=== PATIENT | male | born 1935 | race African-American/Black ===

== ENCOUNTER 2016-12-16 09:39 | Day surgery (SDC) | payer MEDICARE, BC ==
[~2016-12-16] VITALS: Ht 188 cm; Wt 84.4 kg
[~2016-12-16 09:39] MED LIST: ALLOPURINOL100 MG PO; ALLOPURINOL300 MG PO; AMLODIPINE BESY10 MG PO; AMLODIPINE BESYL5 MG PO; CIALIS5 MG PO; COLCRYS0.6 MG PO; EFFIENT10 MG PO; ENALAPRIL MALEA20 MG PO; HYDROCODON-ACE1 EA11 PO; LABETALOL HCL300 MG PO; MIRALAX17 GM PO; MONTELUKAST SOD10 MG PO; NITROSTAT0.4 MG SL; OXYCODONE HCL5 MG PO; PATADAY2.5 ML OPTH; PERCOCET 5-3251 EACH PO; PROTONIX40 MG PO; PROVENTIL HFA6.7 GM INH; SIMVASTATIN20 MG PO; SINGULAIR10 MG PO; SULFAMETHOXAZO1 EAC1 PO; TORSEMIDE100 MG PO; VERAMYST10 GM; VERAMYST10 GM NAS; XARELTO10 MG PO
--- NOTE | 2016-12-16 12:06 | NUR ---
12/16/16 1206 Faisal Underwood INITALLY UNRESPONSIVE TO TAP AND VOICE. PT DOES NOW RESPOND AT 1206. DENIES NAUSEA OR PAIN. REORIENTED TO TIME AND SITUATION. FALLS ASLEEP EASILY.
--- NOTE | 2016-12-16 20:41 | OR ---
[facility] [address], [place] [address] Signed DATE OF OPERATION: 12/16/2016 SURGEON: Shady Hsu MD PREOPERATIVE DIAGNOSIS: Surveillance colon screening. POSTOPERATIVE DIAGNOSES: 1. Small MULTIPLE nodules of the right colon. 2. Small hyperplastic polyps of rectum. PROCEDURE: Total colonoscopy to the cecum with cold morcellation polypectomy and biopsies x2. ANESTHESIA: Intravenous sedation with fentanyl 100 mcg, Versed 4 mg. INDICATION: This is a 81-year-old black man, who is a patient of Dr. Dario Baker and here for colon evaluation. He was planned to have colonoscopy for surveillance in June 2015, but had cardiac problems, ultimately undergoing evaluation for myocardial infarction. He is no longer on Plavix, which he was placed on after stent placement. He remains asymptomatic in regard to colon and is here to undergo colonoscopy. He understands the risks of bleeding, infection, and perforation. He has no family history of colon cancer. He understands risks of bleeding, infection, and perforation, and wished to proceed. FINDINGS: The prep was good. Complete colonoscopy was undertaken to the cecum. There were fine mucosal nodular changes of the right colon and portions of the transverse colon. Additionally, he had some hyperplastic-appearing polyps of the rectum. There was no sign of cancer, colitis, or diverticular disease or other issues of concern. DESCRIPTION OF PROCEDURE: The patient was brought to the endoscopy suite and placed in lateral decubitus position given intravenous sedation to the point of slurred speech and nystagmus. Digital rectal examination was normal. An Olympus video colonoscope was passed in the rectum and manipulated throughout the colon, ultimately intubating the cecum itself. Irrigation was undertaken as needed. Abdominal wall palpation confirmed the position of the scope to be in the cecum. The Electronically Signed By: SHADY HSU MD 12/16/16 2041 PATIENT NAME: ADITHYA FUNG OPERATIVE REPORT DATE OF : 39 PHYSICIAN: SHADY HSU MD REPORT #: [id number] REPORT IS CONFIDENTIAL AND NOT TO BE RELEASED WITHOUT AUTHORIZATION [facility] [address], [place] [address] Signed scope was withdrawn from that point and fine mucosal nodular changes were noted in the [id number] ascending colon. These were not particularly polyps in appearance, but simply fine nodular changes. Biopsies were obtained. The scope was further withdrawn and ultimately in rectum were some hyperplastic-appearing polyps. These were excised with cold morcellation technique. Retroflexed view was reasonably normal. The scope was removed, and the patient was taken to recovery room in good condition. CONCLUDING DIAGNOSES: Fine nodular changes of right colon and transverse colon as well as hyperplastic polyps of rectum. PLAN: We will review his pathology report. In general terms, the findings were innocuous. If adenomatous changes were noted, then surveillance colonoscopy would be needed. If not, expectant management based on his advanced age. MD BRUCE Agustin/DELILAH /[id number] cc: Dario Baker MD Electronically Signed By: SHADY HSU MD 12/16/16 2041 PATIENT NAME: ADITHYA FUNG OPERATIVE REPORT DATE OF : 39 PHYSICIAN: SHADY HSU MD REPORT #: [id number] REPORT IS CONFIDENTIAL AND NOT TO BE RELEASED WITHOUT AUTHORIZATION
[2017-01-29] MEDS ORDERED: EXCEDRIN EXTRA1 EAC1 PO (15:21)
[2017-01-29] MEDS ORDERED: VENTOLIN HFA18 GM INH (15:23)
== END 2016-12-16 12:55 | disposition home or self-care (01) ==
LOC: OPS 09:39 → DS 09:45 → OPS 12:55
PROVIDERS: Surgery
PROC: 0DBP8ZX Excision of Rectum, Via Natural or Artificial Opening Endoscopic, Diagnostic (ICD-10-PCS; 2016-12-16)
PROC: 0DBK8ZX Excision of Ascending Colon, Via Natural or Artificial Opening Endoscopic, Diagnostic (ICD-10-PCS; principal; 2016-12-16 09:45)
DX: Z12.11 Encounter for screening for malignant neoplasm of colon (principal); D12.2 Benign neoplasm of ascending colon; K62.1 Rectal polyp; I25.2 Old myocardial infarction; E78.5 Hyperlipidemia, unspecified; I10 Essential (primary) hypertension; J45.909 Unspecified asthma, uncomplicated; Z87.891 Personal history of nicotine dependence; Z90.89 Acquired absence of other organs; Z96.641 Presence of right artificial hip joint; Z98.890 Other specified postprocedural states; M19.90 Unspecified osteoarthritis, unspecified site; Z79.899 Other long term (current) drug therapy
CPT/HCPCS: 88305; 99152; 99153; J0694; J2250; J3010; J7120

== ENCOUNTER 2020-07-18 06:32 | Emergency (ER) | payer MEDICARE, BC ==
[~2020-07-18] VITALS: Ht 188 cm; Wt 84.4 kg
[~2020-07-18 06:32] MED LIST changes: +EXCEDRIN EXTRA1 EAC1 PO; +VENTOLIN HFA18 GM INH
--- OUTSIDE RECORDS SUMMARY | 2020-07-18 06:34 | XMS ---
PreManage Notification: ADITHYA FUNG Security Installation Technician Events No recent Security Events currently on file [facility] MET [facility] There are no care providers on record at this time. Alva has no Care Guidelines for this patient. Cecilia VISIT COUNT (12 MO.) 1 AFSHIN Salazar TOTAL 1 NOTE: Visits indicate total known visits. ED/UCC VISIT TRACKING (12 MO.) 07/18/2020 06:32 AFSHIN Whitaker OR TYPE: Emergency COMPLAINT: - LT KNEE PAIN INPATIENT VISIT TRACKING (12 MO.) 06/02/2020 06:19 Venkat TRUONG TYPE: Surgical Services [email or web address]
[2020-07-18] MEDS ORDERED: PRIMIDONE50 MG PO (06:51)
[2020-07-18] MEDS ORDERED: TRAMADOL HCL50 MG PO (06:51)
[2020-07-18] MEDS ORDERED: FINASTERIDE5 MG PO (06:53)
[2020-07-18] MEDS ORDERED: PREDNISONE20 MG PO (12:20)
[2020-07-18] MEDS ORDERED: ACETAMINOPHEN-1 EAC1 PO (12:20)
== END 2020-07-18 12:28 | disposition home or self-care (01) ==
LOC: ED 06:32
DX: M25.562 Pain in left knee (principal); K21.9 Gastro-esophageal reflux disease without esophagitis; I10 Essential (primary) hypertension; E78.00 Pure hypercholesterolemia, unspecified; M10.9 Gout, unspecified; Z79.899 Other long term (current) drug therapy
CPT/HCPCS: 73560; 73700; 99284-25

== ENCOUNTER 2021-03-05 09:02 | Inpatient (IN) | payer MEDICARE, BC ==
[~2021-03-05] VITALS: Ht 188 cm; Wt 73.5 kg
[~2021-03-05 09:02] MED LIST changes: +ACETAMINOPHEN-1 EAC1 PO; +FINASTERIDE5 MG PO; +PREDNISONE20 MG PO; +PRIMIDONE50 MG PO; +TRAMADOL HCL50 MG PO
--- OUTSIDE RECORDS SUMMARY | 2021-03-05 09:04 | XMS ---
PreManage Notification: ADITHYA FUNG Security Robotype Operator Events No recent Security Events currently on file CRITERIA MET - [facility] CARE PROVIDERS [facility] 07/20/2020-Current PHONE: [phone] Alva has no Care Guidelines for this patient. EStevan VISIT COUNT (12 MO.) 2 AFSHIN Salazar TOTAL 2 NOTE: Visits indicate total known visits. ED/UCC VISIT TRACKING (12 MO.) 03/05/2021 09:03 AFSHIN Whitaker OR TYPE: Emergency COMPLAINT: - FLU SYMMPTOMS 07/18/2020 06:32 AFSHIN Whitaker OR TYPE: Emergency COMPLAINT: - LT KNEE PAIN DIAGNOSES: - Gout, unspecified - Pain in left knee - Other termite control technician (current) drug therapy - Gastro-esophageal reflux disease without esophagitis - Essential (primary) hypertension - Pure hypercholesterolemia, unspecified INPATIENT VISIT TRACKING (12 MO.) 06/02/2020 06:19 Venkat Cavalier Madhu TRUONG TYPE: Surgical Services [email or web address]
[2021-03-05] MEDS ORDERED: ATORVASTATIN CA20 MG PO (09:36)
[2021-03-05] MEDS ORDERED: LABETALOL HCL300 MG PO (09:36)
[2021-03-05] MEDS ORDERED: ONDANSETRON ODT8 MG PO (10:38)
[2021-03-05] MEDS ORDERED: medrol dose pack (11:28)
[2021-03-05] MEDS ORDERED: AZITHROMYCIN500 MG PO (11:28)
--- NOTE | 2021-03-05 13:05 | NUR ---
Report received from ED RN BECKY Le on 1L via RI.
[2021-03-05] MEDS ORDERED: MONTELUKAST SOD10 MG PO (13:09)
[2021-03-05] MEDS ORDERED: AMLODIPINE BESY10 MG PO (13:16)
--- NOTE | 2021-03-05 13:30 | NUR ---
This RN brought pt from ED to [facility] via stretcher, pt able to ind transfer from stretcher to bed, VSS on 1L via NC, pt denies any pain or SOB only c/o WASSERMAN and cough. Admission and assesment complete, IV Remdesivir hung and infusing per provider order. Pt resting safely in bed w/ call light in reach, no further needs at this time
--- NOTE | 2021-03-05 16:10 | NUR ---
Pt resting safely in bed w/ call light in reach, pt finally has an appetite, tuna sandwhich and apple juice given per request, pt denies any further needs at this time
--- NOTE | 2021-03-05 18:00 | NUR ---
PT RESTING IN BED SAFELY W/ CALL LIGHT IN REACH, PT C/O PERSISTENT COUGH AND CHILLS, PT OBSERVED TO BE PRESPIRING, PT AFEBRILE, VSS ON 1L VIA NC, PT GIVEN PRN COUGH MEDICATIONS PER REQUEST/ORDER. PT DENIES ANY FURTHER NEEDS AT THIS TIME.
--- NOTE | 2021-03-05 19:15 | NUR ---
SHIFT REPORT RECEIVED FROM DAYSHIFT SETH ROSS. pt AWAKE AND RESTING IN BED, ON 1LNC. RR EVEN AND UNLABORED. pt INTERACTIVE WITH SUPERINTENDENT BUILDING AND DENIES NEEDS OR CONCERNS. CALL LIGHT IN REACH.
--- NOTE | 2021-03-05 21:30 | NUR ---
pt AWAKE AND RESTING IN BED AND WATCHING TV. 1LNC REMAINS IN PLACE, RR EVEN AND UNALBORED. NO NEEDS VERBALIZED. CALL LIGHT IN REACH.
--- NOTE | 2021-03-05 22:15 | NUR ---
ASSESSMENT COMPLETE, SCHEDULED MEDS GIVEN (SEE EMAR). pt DENEIS PAIN AND NAUSEA. VSS, 1LNC REMAINS IN PLACE. RR EVEN AND UNLABORED, NO DISTRESS NOTED. DRY COUGH NOTED, pt DECLINES PRN COUGH MEDICATION. pt INDEPENDENT IN ROOM AND CAN TURN SELF IN BED INDEPENDENTLY. pt SWEATY TO FACE, DRY GOWN GIVEN. pt AFEBRILE. FRESH WATER PROVIDED. NO FURTHER NEEDS, CALL LIGHT IN REACH.
--- NOTE | 2021-03-06 00:05 | NUR ---
pt AWAKE AND WATCHING TV IN BED, NO NEEDS VERBALIZED. pt PROVIDED THUMBS UP SIGNAL FROM DOOR. WILL MONITOR, CALL LIGHT IN REACH.
--- NOTE | 2021-03-06 01:37 | NUR ---
PRN COUGH MEDICATION GIVEN, SEE EMAR. NO NEW CHANGES WITH ASSESSMENT. CPOX IN PLACE, pt ACCIDENTLY PULLED OUT O2 FROM WALL. ON RA, pt IN ROOM AND AMBULATING, SPO2 MID 80'S THEN BEGAN TO CLIMB TO UPPER 80'S. 1LNC REMAINS BACK IN PLACE. pt SALLY PAIN, SOB, PALPITATIONS, OR CHEST PAIN. REPORTS SWEATING FROM EARLIER IN SHIFT IS BETTER. SBP RECETLY TAKEN AND IN 90'S, RECHECKED BY THIS RN AND WNL. NO FURTHER NEEDS, CALL LIGHT IN REACH. pt PROVIDE WRITTEN EDUCATION ON PRONING AND THIS RN DISCUSSED EDUCATION IN LENGTH WITH pt, pt REPORTS DIFFICULTY SLEEPING IN PRONING POSITION BUT AGREES TO TRY. NO FURTHER NEEDS, CALL LIGHT IN REACH.
--- NOTE | 2021-03-06 06:36 | NUR ---
EARLIER IN SHIFT, pt WAS NOT ABLE TO VERBALIZE WHY HE WAS TAKING PO ACYCLOVIR AND CLAIMS HE DOESN'T KNOW WHAT THAT MED DOES. EDUCATION PROVIDED. MD BRUSH AWARE THAT MED IS STILL ACTIVE ON EMAR, BUT pt CLAIMS HE DOESN'T TAKE. MD BRUSH TO FURTHER EVAL. AWARE THAT SCHEDULED MED WAS GIVEN AT START OF SHIFT WITH OTHER EVENING MEDS.
--- NOTE | 2021-03-06 07:30 | NUR ---
Shift report received from SETH Marques, pt resting in bed safely w/ call light in reach. Pt on Tele #9 w/ CPOX, sats 99% on 1L via NC, denies any SOB or needs at this time.
[2021-03-06] MEDS ORDERED: COLCRYS0.6 MG PO (09:00)
[2021-03-06] MEDS ORDERED: MOMETASONE FURO15 G1 TOP (09:04)
--- NOTE | 2021-03-06 10:00 | NUR ---
Pt resting in bed w/ call light in reach. Pt sating 100% on 1L via NC, O2 removed, pt sats remains 94-97% on RA, will continue to monitor via Tele/CPOX. Morning assesment complete and scheduled meds given per provider order, pt denies any further needs at this time.
--- NOTE | 2021-03-06 12:00 | NUR ---
Pt up walking in room, sats remained 90-95% on RA, pt denied SOB. Provider notified, verbalized pt will be dischared home, awaiting discharge paperwork, pt updated.
[2021-03-06] MEDS ORDERED: DEXAMETHASONE6 MG PO (13:10)
[2021-03-06] MEDS ORDERED: BENZONATATE100 MG PO (13:10)
--- NOTE | 2021-03-06 14:15 | NUR ---
WRITTEN AND VERBAL DISCHARGE INSTRUCTIONS/EDUCATION GIVEN TO PT, ALL QUESTIONS AND CONCERNS ANSWERED. IV REMOVED AND VSS ON RA. PT TAKEN OUT BACK AMBULANCE BAY VIA W/C WHERE PT'S NEIGHBOR HAD CAR WAITING TO TRANSPORT PT HOME.
[2021-03-12] MEDS ORDERED: LEVOFLOXACIN750 MG PO (00:55)
== END 2021-03-06 14:15 | disposition home or self-care (01) | DRG 177 ==
LOC: ED 09:02 → MS 12:31
PROVIDERS: ADMIT Internal Medicine; ATTEND Internal Medicine
PROC: 8E0ZXY6 Isolation (ICD-10-PCS; principal; 2021-03-05)
DX: U07.1 COVID-19 (principal); J12.82 Pneumonia due to coronavirus disease 2019; J96.01 Acute respiratory failure with hypoxia; N18.30 Chronic kidney disease, stage 3 unspecified; E78.5 Hyperlipidemia, unspecified; E79.0 Hyperuricemia without signs of inflammatory arthritis and tophaceous disease; I12.9 Hypertensive chronic kidney disease with stage 1 through stage 4 chronic kidney disease, or unspecified chronic kidney disease; G89.29 Other chronic pain; K21.9 Gastro-esophageal reflux disease without esophagitis; E78.00 Pure hypercholesterolemia, unspecified; M10.9 Gout, unspecified; Z95.5 Presence of coronary angioplasty implant and graft; Z96.641 Presence of right artificial hip joint; Z79.899 Other long term (current) drug therapy
CPT/HCPCS: 36600; 71045; 80048; 80053; 82803; 85025; 85379; 86140; 94667; 94668; 94760; 94762; 96374; 99285-25; J0248; J1100; J1650; J2405; J7030; J7050; J8540

== ENCOUNTER 2021-03-12 22:15 | Inpatient (IN) | payer MEDICARE, BC ==
[~2021-03-12] VITALS: Ht 188 cm; Wt 73.8 kg
[~2021-03-12 22:15] MED LIST changes: +ATORVASTATIN CA20 MG PO; +AZITHROMYCIN500 MG PO; +BENZONATATE100 MG PO; +DEXAMETHASONE6 MG PO; +LEVOFLOXACIN750 MG PO; +MOMETASONE FURO15 G1 TOP; +ONDANSETRON ODT8 MG PO; +medrol dose pack
--- OUTSIDE RECORDS SUMMARY | 2021-03-12 22:18 | XMS ---
PreManage Notification: ADITHYA FUNG Security Marinator Events No recent Security Events currently on file [facility] CARE PROVIDERS [facility]IM[facility] Current PHONE: [phone] Alva has no Care Guidelines for this patient. Cecilia VISIT COUNT (12 MO.) 3 [facility] TOTAL 3 NOTE: Visits indicate total known visits. ED/UCC VISIT TRACKING (12 MO.) 03/12/2021 22:16 AFSHIN Whitaker OR TYPE: Emergency COMPLAINT: - CHEST PAIN,COUGH 03/05/2021 09:03 AFSHIN Whitaker OR TYPE: Emergency COMPLAINT: - FLU SYMMPTOMS 07/18/2020 06:32 AFSHIN Whitaker OR TYPE: Emergency COMPLAINT: - LT KNEE PAIN DIAGNOSES: - Gout, unspecified - Pain in left knee - Other care home (current) drug therapy - Gastro-esophageal reflux disease without esophagitis - Essential (primary) hypertension - Pure hypercholesterolemia, unspecified INPATIENT VISIT TRACKING (12 MO.) 03/05/2021 12:31 AFSHIN Whitaker OR TYPE: Medical Surgical COMPLAINT: - COVID 19 PNEUMONIA WITH HYPOXIA DIAGNOSES: - Hypertensive chronic kidney disease with stage 1 through stage 4 chronic kidney disease, or unspecified chronic kidney disease - Acute respiratory failure with hypoxia - Gout, unspecified - Other long term care pharmacist (current) drug therapy - Pure hypercholesterolemia, unspecified - Other chronic pain - COVID-19 - Hyperuricemia without signs of inflammatory arthritis and tophaceous disease - Presence of right artificial hip joint - Gastro-esophageal reflux disease without esophagitis - Presence of coronary angioplasty implant and graft - Hyperlipidemia, unspecified - Chronic kidney disease, stage 3 unspecified 06/02/2020 06:[address] Elissa TRUONG TYPE: Surgical Services [email or web address]
[2021-03-13] MEDS ORDERED: NORVASC10 MG PO (00:49)
[2021-03-13] MEDS ORDERED: VASOTEC20 MG PO (00:51)
[2021-03-13] MEDS ORDERED: LABETALOL HCL300 MG PO (00:51)
[2021-03-13] MEDS ORDERED: VENTOLIN HFA18 GM INH (00:52)
[2021-03-13] MEDS ORDERED: SINGULAIR10 MG PO (00:53)
[2021-03-13] MEDS ORDERED: GUAIFEN-CODEINE10 ML PO (00:54)
--- NOTE | 2021-03-13 01:06 | NUR ---
REPORT FROM STUDENT SETH PEREZ, THEN CALLED TO ALSO GIVE REPORT.
--- NOTE | 2021-03-13 01:14 | NUR ---
PT ARRIVED TO ROOM 110 AT THIS TIME. HE AMBULATED STANDBY ASSIST TO TRANSFER FROM STRETCHER TO HOSPITAL BED.
--- NOTE | 2021-03-13 01:20 | NUR ---
ADMISSION COMPLETED. PATIENT PLACED ON TELE #6 W/CPOX. VITALS TAKEN AND RECORDED. PATIENT IS ON RA. PATIENT DENIES ANY SOB. PATIENT STATED "I ONLY HAVE CHEST PAIN WHEN I TAKE A BIG DEEP BREATH". PATIENT DENIES ANY PAIN AT REST. PATIENT EDUCATED ON ROOM AND CALL LIGHT. PATIENT DENIES ANY NEEDS. CALL LIGHT IN REACH. FREIND/CAREGIVER SANFORD PRESENT IN ROOM. PATIENT IS AAOX4.
--- NOTE | 2021-03-13 01:38 | NUR ---
PT RESTING IN BED NO REPORT OF PAIN, HE REQUESTED WATER, HE SAID HE WAS NOT HUGERY, HE VERBALIZED HE JUST WANTS TO GET SOME SLEEP, PT ON TELEMETRY WITH OXIMETRY. NO DISTRESS NOTED ON ASSESSMENT. HE HAS HIS FRIEND THAT CAME WITH HIM TO ADMIT. PT CURRENTLY HAS NO RESP DISTRESS, NO SHORTNESS OF BREATH, NO DYSPNEA. 96% ON ROOM AIR.
--- NOTE | 2021-03-13 02:06 | NUR ---
BLOOD DRAWN AND SNET TO LAB. PATIENT DENIES HOLDEN NEEDS. CALL LIGHT IN REACH,
--- NOTE | 2021-03-13 02:08 | NUR ---
CAREGIVER TO VISIT WILL BE SANFORD NASH [phone], PER PT REQUEST AND SANFORD'S REQUEST. PT AND SANFORD REPORTS THAT THIS IS HIS PERSON THAT ASSISTS WITH TAKING PT TO MEDICAL APPOINTMENTS, WELL ASSISTING PT WITH ANYOTHER NEEDS AROUND HIS HOME.
--- NOTE | 2021-03-13 02:38 | NUR ---
CALLED TO REPORT TROPONIN 312.2, SHE SAID THAT SHE EXPECTS THAT THIS IS RELATED TO PE, NO NEED TO NOTIFY ON NEXT SERIES SHE WILL REVIEW IN AM.
--- NOTE | 2021-03-13 03:31 | NUR ---
BED ALARM SET OFF, ASSISTED PT TO THE TOILET, 1PA\SBA, REMINING PT TO CALL, FOR PTs SAFETY, NO FURTHER NEEDS, BED ALARM IS RESET
--- NOTE | 2021-03-13 03:47 | NUR ---
PT ADMITTED FROM ED, HE IS ORIENTED, HE DOES NOT CALL FOR ASSISTANCE, BED ALARM FOR PT SAFETY. HE HAS NO REPORT OF PAIN ON ADMISSION OR SINCE, HE HAS BURN TO NECK AND UPPER BACK, TREATED IN E.D., WOUND CARE CONSULT ORDER PLACED PER PROTOCOL. WILL TAKE PHOTOS THIS AM WITH V/S. MONITOR LABS AND RESPIRATORY STATUS, ON TELEMETRY AND CONTINUOUS PULSE OXIMETRY. NO SOB OR DYSPNEA. FIRST DOSE OF LOVENOX ADMINSTERED IN E.D. CALLED IN REGARDS TO ELEVATED TROPONIN LAB. HE HAS NOT REPORTED ANY CHEST PAIN SINCE ADMISSION.
--- NOTE | 2021-03-13 04:43 | NUR ---
PT ALERT AND ORIENTED THIS AM, LAB DRAW, V/S, ASSESSMENT COMPLETE.
--- NOTE | 2021-03-13 04:57 | NUR ---
PT REPORTS PAIN THIS AM OF 5/10 AT HIS CHEST WITH BREATHING. 2MG IV MORPHINE ADMINISTERED AT THIS TIME. WILL MONTITOR FOR AFFECTIVENESS, V/S STABLE, TELEMETRY NOTES NSR WITH HR 99 BPM. 97% ON ROOM AIR.
--- NOTE | 2021-03-13 05:01 | NUR ---
PHOTOS TAKEN OF BONILLA, CONSENT SIGNED BY PT TO DO SO.
--- NOTE | 2021-03-13 05:30 | NUR ---
UPDATED ON TROPONIN CRITICAL LAB 784. PAIN ELEVATION THIS AM, AND TELEMETRY ST DEPRESSION NOTED BY ZACH CRUSHER SETTER. NO NEW ORDERS GIVEN OVER THE PHONE.
--- NOTE | 2021-03-13 06:21 | NUR ---
PT REPORTS THAT THE PAIN IS A LITTLE BETTER NOW, HE SAID THERE IS LESS PAIN WITH BREATHING NOW.
--- NOTE | 2021-03-13 08:23 | NUR ---
mORPHINE 2MG IVP ADMIN FOR REPORTS OF PAIN IN RIGHT CHEST AREA PAIN WITH INSPIRATION.
--- NOTE | 2021-03-13 08:25 | NUR ---
Morphine 2mg IVp admin for reports of rib/chest pain.
--- NOTE | 2021-03-13 10:10 | NUR ---
Dilaudid 1mg ivp admin for reports of right chest pain increased with inspiration.
[2021-03-13] MEDS ORDERED: ACYCLOVIR400 MG PO (10:59)
--- NOTE | 2021-03-13 11:23 | NUR ---
Physical therepy in working with patient.
--- NOTE | 2021-03-13 12:48 | NUR ---
Patient sitting up eating lunch at this time, no acute distress noted. Patient reports his pain has improved. Patient remains on room air, sp02 94% at this time. Patient denies needs. Personal supplies and call light within reach.
--- NOTE | 2021-03-13 14:05 | NUR ---
WOUND NURSE CONSULT PT WITH BONILLA TO UPPER BACK AND NECK FROM FALLING ON HEATER. PICTURES IN CHART. WOUND CLEANSED WITH SOAP AND WATER AND DRIED. ALLEVYN AG PLACED ON OPED/POPPED BLISTER AREAS ON ULLER BACK. SECURED WITH OPSITE. MEDIHONEY APPLIED TO NECK BLISTERS AND ALLEVYN PLACED OVER TOP. BOTH DRESSINGS CAN STAY IN PLACE FOR UP TO 7 DAYS AND CHANGE PRN NEEDED FOR DRAINAGED.
--- NOTE | 2021-03-13 15:46 | NUR ---
Patient up to restroom for void then back to bed. Patient reports his right chest pain has imrpoved this afternoon. Home phone chargers x2 provided to patient from his small animal caretaker, Rell.
--- NOTE | 2021-03-13 16:36 | NUR ---
MED REC COMPLETE
--- NOTE | 2021-03-13 18:16 | NUR ---
Patient in bed resting, no distress. Patient denies pain at this time. SP02 95% on room air, respirations even and non labored. Patient denies needs. Personal supplies and call light within reach.
--- NOTE | 2021-03-13 19:20 | NUR ---
REPORT RECEIVED FROM DAY SHIFT RN. PT LYING IN BED RESTING WITH EYES CLOSED. RESPIRATIONS EVEN. SpO2 94% ON RA. HR 80'S. CALL LIGHT IN REACH.
--- NOTE | 2021-03-13 20:25 | EKG ---
[facility] [address] [place] [address] Signed Sinus rhythm with premature supraventricular complexes and with occasional premature ventricular complexes Posterior infarct , age undetermined Abnormal ECG When compared with ECG of 29-JAN-2017 15:17, premature ventricular complexes are now present ST now depressed in Anterior leads Nonspecific T wave abnormality, worse in Inferior leads Nonspecific T wave abnormality now evident in Lateral leads Confirmed by FRANCISCO JAVIER ARREOLA MD ([id number]) on 03/13/2021 8:25:16 PM Electronically Signed By: FRANCISCO JAVIER ARREOLA MD 03/13/212024 PATIENT NAME: ADITHYA FUNG Electrocardiogram DATE OF : 39 PHYSICIAN: FRANCISCO JAVIER ARREOLA MD REPORT #: [id number] REPORT IS CONFIDENTIAL AND NOT TO BE RELEASED WITHOUT AUTHORIZATION
[2021-03-13] MEDS ORDERED: ELIQUIS5 MG PO (20:36)
--- NOTE | 2021-03-13 21:27 | NUR ---
SPOKE WITH DR ARREOLA ABOUT HOLD PARAMETERS FOR PATIENTS LABETALOL. RECEIVED NEW ORDERS PER MD, VERIFIED USING THE READBACK METHOD. WILL HOLD MEDICATION PER MD ORDER. NOTIFIED AFSHAN ANN PATIENTS PRIMARY RN OF MD ORDER.
--- NOTE | 2021-03-13 21:36 | NUR ---
PT ALERT AND ORIENTED. DROWSY BUT AWAKENS EASILY WHEN ENTERING ROOM. EVENING ASSESSMENT COMPLETE. SCHEDULED MEDS ADMINISTERED PER EMAR. PRN FOR PAIN ADMINISTERED FOR GENERALIZED PAIN. PT DENIES CHEST PAIN OR SOB. RESPIRATIONS EVEN. PT REMAINS ON RA. SpO2 96% ON RA. DRESSING TO BACK OF NECK AREA CDI. FRESH WATER PROVIDED. PT DENIES QUESTIONS OR CONCERNS. CALL LIGHT IN REACH.
--- NOTE | 2021-03-13 23:28 | NUR ---
PT UP TO BR TO VOID AND HAVE EXTRA SMALL FIRM BM. PT REQUESTING STOOL SOFTENER. NIO ORDERED AND ADMINISTERED FOR BOWEL CARE. FRESH WATER PROVIDED. NO FURTHER NEEDS.
--- NOTE | 2021-03-14 01:47 | NUR ---
IN FOR VS AND TO CHANGE TELE BATTERY. PT DENIES CHEST PAIN OR SOB. VS WNL. SpO2 95% ON RA. RESPIRATIONS EVEN. PT DENIES PRN FOR PAIN AT THIS TIME. NO FURTHER NEEDS. CALL LIGHT IN REACH.
--- NOTE | 2021-03-14 03:19 | NUR ---
PT RESTING IN BED WITH EYES CLOSED. RESPIRATIONS EVEN. CALL LIGHT IN REACH.
--- NOTE | 2021-03-14 06:00 | NUR ---
VS AND I&O COMPLETE. PT REPORTS PAIN IN LEFT UPPER ARM THAT HE BELIEVES IS FROM HAVING BLOOD PRESSURES TAKEN ON LEFT ARM. LUMP NOTED IN LEFT TRICEP AREA. NO REDNESS OR WARMTH NOTED. PULSES STRONG BUE. PT DENIES RADIATING PAIN. NO CHEST PAIN OR SOB. DITCH INSPECTOR AND RN ELECTRIC MOTOR REPAIRING SUPERVISOR IN TO ASSESS. WILL NOTIFY MD. MORNING LABS DRAWN AND SENT TO LAB PER PROTOCOL. FRESH ICE WATER PROVIDED. PT DENIES FURTHER NEEDS. RT IN ROOM FOR SCHEDULED EKG.
--- NOTE | 2021-03-14 06:35 | NUR ---
CRITICAL LAB VALUE RECEIVED. DR. ARREOLA NOTIFIED OF TROPONIN LAB VALUE AND LUMP IN PTS LEFT UPPER ARM. NO NEW ORDERS RECEIVED AT THIS TIME.
--- NOTE | 2021-03-14 07:22 | NUR ---
Patient resting in bed, eyes closed, respirations even and non labored. Patient has no distress. SP02 95% on room air. Personal supplies and call light within reach.
--- NOTE | 2021-03-14 10:26 | NUR ---
Patient's posterior left upper arm has a firm bulge noted. Patient reports he noticed worsening pain when he lifts his arm. Patient reports he does not recall having a bulge to his arm, just pain associated when he lifts left arm. Left arm circumference 30cm/right arm circumference 29cm. Radial pulses intact to left and right wrist(s). Left arm restricted band placed, pillows under left arm to elevate. Education provided to patient regarding limiting use to arm at this time. Dr. Temple updated regarding this.
--- NOTE | 2021-03-14 11:06 | NUR ---
Rell patient's reported knee bolter updated regarding plan of care. Rell requesting to come in and visit patient this afternoon. ict help desk officer updated, they report they will allow Rell to come through later today to visit.
--- NOTE | 2021-03-14 13:27 | NUR ---
In to start IV fluids per provider order. Patient denies chest pain. ISS provided to patient-pt used x5 at this time. Urine needs-pt aware. Patient has no needs at this time.
--- NOTE | 2021-03-14 13:27 | NUR ---
IV fluids started per provider order. Patient denies sob and or chest pain. temp 99.2f at this time, IS provided to patient. Patient able to demonstrated proper IS use x5 with this RN. UA needed, this RN instructed patient to void in sterile container next void-pt receptive. Patient has no needs. Personal supplies and call light within reach.
--- NOTE | 2021-03-14 14:23 | NUR ---
US tech done with study. Dr. Temple updated.
--- NOTE | 2021-03-14 15:22 | NUR ---
Patient refused his Labetalol this afternoon. Patient reports he only takes it in the morning and at night. Patient a bit agitated today with cares. Will continue to provide ongoing education. Patient denies needs at this time. UA sent to lab at this time.
--- NOTE | 2021-03-14 18:02 | NUR ---
In to check on patient. Patient in bed watching tv, no distress. Patient denies chest pain and or sob at this time. Vital signs stable, afebrile. IV site patent. Patient denies needs at this time. Dinner to patient. Encouraged patient to call staff if he has needs.
--- NOTE | 2021-03-14 19:24 | NUR ---
REPORT RECEIVED FROM DAY SHIFT RN. PT LYING IN BED RESTING WITH EYES CLOSED. RESPIRATIONS EVEN. TELE #6. SR. HR 93. HR 80'S. SpO2 95% ON RA. IVF INFUSING WNL. CALL LIGHT IN REACH. BED ALARM FOR SAFETY.
--- NOTE | 2021-03-14 19:35 | NUR ---
PATIENT USED THE CALL LIGHT. SBA TO THE BATHROOM AND BACK TO BED. PATIENT VOIDED UNMEASURED AND HAD A SMALL BOWEL MOVEMENT. NO OTHER NEEDS AT THIS TIME.
--- NOTE | 2021-03-14 21:50 | NUR ---
EVENING ASSESSMENT COMPLETE. SCHEDULED MEDS ADMINISTERED. PT REFUSED 600 MG LABETALOL BECAUSE HE DID NOT WANT TO SWALLOW THREE TABLETS. PT REQUESTING 400 MG AND STATES "LET'S SEE WHAT HAPPENS." EDUCATION PROVIDED. PT NOT RECEPTIVE. STATES "I DON'T WANT TO FEEL LIKE I DID EARLIER IN THE DAY AFTER SWALLOWING ALL THOSE PILLS." PT ON TELE #6. SR. HR 70'S. PT DENIES CHEST PAIN OR SOB. RESPIRATIONS EVEN. SBA TO BR TO VOID. GAIT STEADY. BACK TO BED, MICHAEL WELL. PT REPORTS GENERALIZED PAIN 5/10. PRN FOR PAIN AND SLEEP ADMINISTERED PER EMAR. SNACK PROVIDED. PT DENIES QUESTIONS OR CONCERNS. CALL LIGHT IN REACH.
--- NOTE | 2021-03-14 23:42 | NUR ---
PT RESTING IN BED WITH EYES CLOSED. RESPIRATIONS EVEN. HOB ELEVATED. IVF INFUSING WNL. SpO2 93%. HR 70'S. CALL LIGHT IN REACH.
--- NOTE | 2021-03-15 00:36 | NUR ---
CALL LIGHT ANSWERED. PT UP TO BR WITH SBA TO VOID. GAIT STEADY. BACK TO BED, MICHAEL WELL. PT DENIES CHEST PAIN OR SOB. DOES REPORT PAIN IN LUE. DOES NOT WANT PRN FOR PAIN AT THIS TIME. PT SITTING UP IN BED EATING PUDDING. NO FURTHER NEEDS.
--- NOTE | 2021-03-15 03:47 | NUR ---
PT RESTING IN BED WITH EYES CLOSED. RESPIRATIONS EVEN. SpO2 94% ON RA. HR 70'S. CALL LIGHT IN REACH.
--- NOTE | 2021-03-15 05:54 | NUR ---
VS AND I&O COMPLETE. PT UP TO BR WITH SBA TO VOID. GAIT STEADY. BACK TO BED, MICHAEL WELL. PT DENIES PAIN OR SOB. DOES NOT WANT PRN FOR PAIN AT THIS TIME. NEW BAG IVF INFUSING. PUDDING AND FRESH WATER PROVIDED. PT DENIES FURTHER NEEDS. CALL LIGHT IN REACH.
--- NOTE | 2021-03-15 06:49 | NUR ---
CRITICAL VALUE RECEIVED FROM LAB. DR. ARREOLA NOTIFIED. NO NEW ORDERS AT THIS TIME.
--- NOTE | 2021-03-15 09:11 | NUR ---
PT RESTING WITH EYES CLOSED. ADMINISTERED SCHEDULED MEDS INCLUDING THE 3 LABATOLOL. PT DID NOT APPRECIATE SO MANY PILLS. UP TO RESTROOM WITH SBA.
--- NOTE | 2021-03-15 09:24 | NUR ---
PT HAD BM AND AMB BACK TO BED ON OWN. PLUGGED IN PUMP. PT DENIES FURTHER NEEDS. HEAT TURNED UP IN ROOM.
--- NOTE | 2021-03-15 09:58 | NUR ---
PATIENT IN BED RESTING WITH EYES CLOSED AT THIS TIME. VITALS AND I&O'S CHARTED. FRESH WATER GIVEN. CALL LIGHT IN REACH. NO FURTHER NEEDS AT THIS TIME.
--- NOTE | 2021-03-15 13:16 | NUR ---
PT ALERT, ORIENTED AND RESTING COMFORTABLY. PT FRIENDLY, SEEMED PLEASED I STOPPED BY. GAVE ENCOURAGEMENT, PT REQUESTED PRAYER. GAVE G.POST AND ALSO BLESSING. WILL FOLLOW
--- NOTE | 2021-03-15 13:36 | NUR ---
PT REQUESTED A NAP, SIGN ON DOOR AND STAFF INSTRUCTED TO NOT GO IN.
--- NOTE | 2021-03-15 13:49 | NUR ---
OVER TO FLOOR TO ATTEMPT CASE MANAGEMENT ASSESSMENT. PER NAWAF RN PATIENT SLEEPING AND DOES NOT WANT TO BE DISTERBED AT THIS TIME. DISCUSSED CASE MANAGEMENT NEEDS WITH NAWAF RN, PATIENT LIVES AT HOME ALONE AND IS INDEPENDENT. WILL ATTEMPT TO ASSESS PATIENT LATER TODAY.
--- NOTE | 2021-03-15 14:50 | NUR ---
PATIENT IN BED RESTING WITH EYES CLOSED. VITALS AND I&O'S CHARTED. CALL LIGHT IN REACH. NO FURTHER NEEDS AT THIS TIME.
--- NOTE | 2021-03-15 16:40 | NUR ---
PT BP LOW AT 104\80, HELD LABETOLOL FOR NOW. PT UP TO WORK WITH RENAL MEDICINE SPECIALIST
--- NOTE | 2021-03-15 18:10 | NUR ---
PATIENT IN BED RESTING AT THIS TIME. VITALS AND I&O'S CHARTED. CALL LIGHT IN REACH. NO FURTHER NEEDS AT THIS TIME.
--- NOTE | 2021-03-15 18:41 | NUR ---
PT BP REPORTED VERY LOW BY HOMAR HERNANDEZ. RECHECKED AND READJUSTED BP CUFF. BP WNL. REHEATED PT'S DINNER
--- NOTE | 2021-03-15 19:29 | NUR ---
REPORT RECEIVED FROM DAY SHIFT RN. PT LYING IN BED RESTING WITH EYES CLOSED. RESPIRATIONS EVEN. CALL LIGHT IN REACH.
--- NOTE | 2021-03-15 22:32 | NUR ---
EVENING ASSESSMENT COMPLETE. SCHEDULED MEDS ADMINISTERED. PT REFUSED 600 MG LABETALOL. AGREED TO ONLY TAKE 400 MG. EDUCATION PROVIDED. PRN FOR HEADACHE/GENERALIZED PAIN ADMINISTERED WELL PRN FOR SLEEP. PT DENIES CHEST PAIN OR SOB. RESPIRATIONS EVEN. SpO2 96% ON RA. REPORTS LUE "SORE". BRUISE AND SWELLING NOTED. PT DENIES QUESTIONS OR CONCERNS. WARM BLANKET AND PUDDING PROVIDED. NO FURTHER NEEDS. CALL LIGHT IN REACH.
--- NOTE | 2021-03-15 23:21 | NUR ---
PT RESTING IN BED WITH EYES CLOSED. RESPIRATIONS EVEN. CALL LIGHT IN REACH.
--- NOTE | 2021-03-16 01:07 | NUR ---
PT AWAKE IN BED. DENIES PAIN OR SOB. NO NEEDS AT THIS TIME. CALL LIGHT IN REACH.
--- NOTE | 2021-03-16 03:44 | NUR ---
PT RESTING IN BED WITH EYES CLOSED. RESPIRATIONS EVEN. CALL LIGHT IN REACH.
--- NOTE | 2021-03-16 06:36 | NUR ---
VS AND I&O COMPLETE. MORNING LABS DRAWN PER PROTOCOL. PT DENIES PAIN OR SOB. SpO2 93% ON RA. RESPIRATIONS EVEN. FRESH WATER PROVIDED. PT DENIES FURTHER NEEDS. CALL LIGHT IN REACH.
--- NOTE | 2021-03-16 06:57 | EKG ---
[facility] [address] [facility] [place] [address] Signed Sinus rhythm with sinus arrhythmia with frequent premature ventricular complexes Minimal voltage criteria for LVH, may be normal variant Inferior-posterior infarct , age undetermined Prolonged QT Abnormal ECG No previous ECGs available Confirmed by FRANCISCO JAVIER ARREOLA MD ([id number] on 03/16/2021 6:57:05 AM Electronically Signed By: FRANCISCO JAVIER ARREOLA MD 03/16/21 0657 PATIENT NAME: ADITHYA FUNG Electrocardiogram DATE OF : 39 PHYSICIAN: FRANCISCO JAVIER ARREOLA MD REPORT #: [id number] REPORT IS CONFIDENTIAL AND NOT TO BE RELEASED WITHOUT AUTHORIZATION
--- NOTE | 2021-03-16 08:30 | NUR ---
REPORT RECEIVED FROM NIGHT RN AND PT. CARE RESUMED. PT. IS ALERT AND ORIENTED TO ALL. HE C/O LOWER BACK PAIN AND FEELING A "SORE" ABOVE COCYX. LUMP PALPATED UNDER SKIN. PT. ADMIN NORCO. LEFT UPPER ARM HAS +1 EDEMA AND BRUISING. PAINFUL TO TOUCH. PT. ON ROOM AIR AND DENIES SOB OR CHEST PAIN. DISCUSSED PAIN MANAGEMENT, POC, AND MEDS. LEFT RESTING WITH CALL LIGHT IN REACH.
--- NOTE | 2021-03-16 09:43 | NUR ---
PT. UPDATED ON COSTS OF ELIQUIST PRESCRIPTION. HE STILL C/O PAIN IN COCYX WHERE LUMP IS PRESENT. PT. HAS HX OF HERPES LESIONS ON COCYX. UPDATED AND ADVISES HE F/U WITH PCP AFTER DC.
--- NOTE | 2021-03-16 09:44 | NUR ---
PATIENT IN BED RESTING AT THIS TIME. VITALS AND I&O'S CHARTED. FRESH WATER AT BEDSIDE. CALL LIGHT IN REACH. NO FURTHER NEEDS AT THIS TIME.
[2021-03-16] MEDS ORDERED: ACYCLOVIR400 MG PO (10:01)
--- NOTE | 2021-03-16 11:00 | NUR ---
ALL DISCHARGE INSTRUCTIONS REVIEWED WITH PT AND QUESTIONS ANSWERED. IV REMOVED WITH CATH INTACT AND PT. EDUCATION PROVIDED. PAIN IS TOLERABLE AT THIS TIME AND VITALS STABLE. PT. LEFT WITH ALL BELONGINGS VIA WHEELCHAIR WITH REVENUE AUDIT CLERK.
== END 2021-03-16 11:02 | disposition home or self-care (01) | DRG 177 ==
LOC: ED 22:15 → MS 03-13 00:47
PROVIDERS: ADMIT Internal Medicine; ATTEND Internal Medicine
DX: U07.1 COVID-19 (principal); I26.99 Other pulmonary embolism without acute cor pulmonale; I25.10 Atherosclerotic heart disease of native coronary artery without angina pectoris; R79.89 Other specified abnormal findings of blood chemistry; Z95.5 Presence of coronary angioplasty implant and graft; K21.9 Gastro-esophageal reflux disease without esophagitis; I10 Essential (primary) hypertension; E78.00 Pure hypercholesterolemia, unspecified; M10.9 Gout, unspecified; Z96.641 Presence of right artificial hip joint; Z98.890 Other specified postprocedural states; Z79.899 Other long term (current) drug therapy
CPT/HCPCS: 36415; 71260; 80048; 80053; 81001; 82553; 83735; 83880; 84484; 85025; 85610; 93005; 93010; 93931; 94762; 97110; 97116; 97162; 99285-25; J1170; J1650; J2270; J7121; Q9967

== ENCOUNTER 2022-05-20 16:52 | Emergency (ER) | payer MEDICARE, BC ==
[~2022-05-20] VITALS: Ht 188 cm; Wt 79.4 kg
[~2022-05-20 16:52] MED LIST changes: +ACYCLOVIR400 MG PO; +ELIQUIS5 MG PO; +GUAIFEN-CODEINE10 ML PO; +NORVASC10 MG PO; +VASOTEC20 MG PO
[2022-05-20] MEDS ORDERED: INDAPAMIDE1.25 MG PO (19:54)
== END 2022-05-20 20:11 | disposition home or self-care (01) ==
LOC: ED 16:52
DX: I12.9 Hypertensive chronic kidney disease with stage 1 through stage 4 chronic kidney disease, or unspecified chronic kidney disease (principal); N18.9 Chronic kidney disease, unspecified; E87.5 Hyperkalemia; K21.9 Gastro-esophageal reflux disease without esophagitis; E78.00 Pure hypercholesterolemia, unspecified; M10.9 Gout, unspecified; I25.2 Old myocardial infarction; Z79.899 Other long term (current) drug therapy
CPT/HCPCS: 36415; 80048; 99284